=== PATIENT | female | born 1970 | race African-American/Black ===

== ENCOUNTER 2020-10-03 17:25 | Emergency (ER) | payer BC ==
[~2020-10-03] VITALS: Ht 162.6 cm; Wt 53.1 kg
--- NOTE | ~2020-10-03 | EMS ---
[facility] [address] [place] [address] EMS Patient Care Report Name: KALYAN HINTON Room #: DEP ADRIANNA Gunter#: [id number] Admission: 10/03/20 Attend Phys: Discharge: 10/03/20 Date of : 72 Report #: [id number] THIS REPORT FOR: //name// Report Transmitted: 10/05/2020 13:23 EMS Care Summary [place], [place]/[facility] Incident [id number] @ 10/03/2020 16:53 Incident Location [address] [place] [id number] Patient KALYAN HINTON Female, 50 Years 1970 Patient Address [address] [place] [address] Patient History Chronic Obstructive Pulmonary Disease (COPD),Hypertension (HTN),Anxiety Disorder (Panic Attacks),Anxiety, Patient Allergies No known allergies, Patient Medications Albuterol, Lorazepam, Chief Complaint MID BACK PAIN Disposition Transported No Lights/[place] Dispatch Reason Back Pain (Non-Traumatic) Transported To [facility] Narrative M41 DISPATCHED TO BACK PAIN. M41 AOS AND FOUND A FEMALE PT SITTING IN HER KITCHEN IN A CHAIR. THE PT STATES [facility] [address] [place] [address] EMS Patient Care Report Name: KALYAN HINTON Room #: DEP ADRIANNA Gunter#: [id number] Admission: 10/03/20 Attend Phys: Discharge: 10/03/20 Date of : 72 Report #: [id number] THAT SHE HAD A SUDDEN ONSET OF MID BACK PAIN. THE PT DENIES HAVING PAIN ANYWHERE ELSE. THE PT STATES THAT SHE NOTICED HER URINE WAS SLIGHTLY DARKER THAN NORMAL. THE PT DENIES CP, SOA, DIZZINESS, NV, ABD PAIN. PT STATES THAT SHE DOES NOT KNOW IF SHE HAS EVER HAD KIDNEY STONES. PT RATES THE PAIN 10/10 WITH EXERTION AND A 6/10 AT REST. PT WAS ABLE TO WALK WITH HELP TO THE COT. VITALS OBTAINED. BGA OBTAINED. IV ACESS OBTAINED. M[address] [facility]. EN ROUTE PT REMAINED STABLE. REPORT GIVEN TO BANDAR ASKEW. SIGNATURES OBTAINED. TRANSFER OF CARE TOOK PLACE. M41 IN SERVICE. SLADE DANIELS SHOVELER Initial Vitals @17:06P: 87,R: 18,BP: 118/79,Pain: 0/10,GCS: 15,CO: 14,SpO2: 100,Revised Trauma: 12, @17:02P: 84,R: 18,BP: 113/82,Pain: 6/10,GCS: 15,Glucose: 107,SpO2: 100,Revised Trauma: 12, Assessments @17:10MENTAL:Person Oriented,Place Oriented,Event Oriented,Time Oriented,SKIN:HEENT:Head/Face: No Abnormalities,Neck/Airway: No Abnormalities,LUNG SOUNDS:General: No Abnormalities,ABDOMEN:General: No Abnormalities,PELVIS//GI:No Abnormalities,EXTREMITIES:Capillary Refill: Right Upper: < 2 Sec,Left Arm: No Abnormalities,Right Arm: No Abnormalities,Left Leg: No Abnormalities,Right Leg: No Abnormalities,PULSE:Radial: 2+ Normal,NEURO:No Abnormalities, Impression Back Pain Procedures @17:09ALS AssessmentResponse: UnchangedSucceeded@17:09Saline Lock 10cc (20 ga) Site: Antecubital-LeftResponse: UnchangedSucceeded Timeline 16:51,Call Received 16:51,Dispatch Notified [facility] [address] [place] [address] EMS Patient Care Report Name: KALYAN HINTON Room #: DEP ADRIANNA Gunter#: [id number] Admission: 10/03/20 Attend Phys: Discharge: 10/03/20 Date of : 72 Report #: [id number] 16:53,Dispatched 16:54,En Route 16:57,On Scene 16:59,At Patient 17:02,BP: 113/82 M,PULSE: 84,RR: 18 R,SPO2: 100 Ox,ETCO2: ,B,PAIN: 6,GCS: 15, 17:06,BP: 118/79 M,PULSE: 87,RR: 18 R,SPO2: 100 Ox,ETCO2: ,BG: ,PAIN: 0,GCS: 15, 17:08,Depart Scene 17:09,ALS Assessment,Response: UnchangedSucceeded, 17:09,Saline Lock 10cc 20 ga Site: Antecubital-Left,Response: UnchangedSucceeded, 17:21,At Destination 17:33,Call Closed Disclaimer v1.1 Copyright 2020 [employer] This EMS Care Summary contains data elements from the applicable legal record (which may be displayed differently). It is designed to provide pertinent information for the following purposes: continuity of care, clinical quality, and state data reporting. The complete legal record is available to ED staff and administrators of the receiving hospital in [employer]'s Patient Tracker. All data is provided "as is."
[~2020-10-03 17:25] MED LIST: ALPRAZOLAM PO; LISINOPRIL20 MG; ONDANSETRON HCL4 M2 PO
[2020-10-03 18:05] LABS: URINE BILIRUBIN NEGATIVE (Negative); URINE BLOOD NEGATIVE (Negative); URINE CLARITY CLEAR; URINE COLOR YELLOW; URINE GLUCOSE-RANDOM* NEGATIVE (Negative); URINE KETONES NEGATIVE (Negative); URINE LEUKOCYTES-REFLEX NEGATIVE (Negative); URINE NITRITE-REFLEX NEGATIVE (Negative); URINE PROTEIN (DIPSTICK) NEGATIVE (Negative); URINE SPECIFIC GRAVITY 1.025 (1.005-1.035); URINE UROBILINOGEN 0.2 E.U./dl (0.2-1.0)
[2020-10-03 19:48] VITALS: BP 109/79
== END 2020-10-03 19:48 | disposition home or self-care (01) ==
LOC: ER 17:25
PROVIDERS: Nurse Practitioner Family
DX: R07.81 Pleurodynia (principal); J44.9 Chronic obstructive pulmonary disease, unspecified; I10 Essential (primary) hypertension; F17.210 Nicotine dependence, cigarettes, uncomplicated; F41.9 Anxiety disorder, unspecified; Z79.899 Other long term (current) drug therapy